=== PATIENT | female | born 1985 | race Caucasian/White ===

== ENCOUNTER 2020-06-11 23:42 | Emergency (ER) | payer BC ==
[~2020-06-11] VITALS: Ht 161 cm; Wt 63.0 kg
[2020-06-12 00:10] VITALS: TEMP 96.6
[2020-06-12 01:17] LABS: BASO % 0.2 % (0.0-2.0); EOS # 0.1 (0.0-0.7); EOS % 0.6 % (0-4.0); GRAN # 9.8 (1.4-6.5); HEMATOCRIT 38.1 % (37.0-47.0); HEMOGLOBIN 12.9 g/dl (12.5-16.0); LYMPH % 16.1 % (20.0-51.0); MEAN CELL VOLUME 91 fl (80.0-100.0); MEAN CORPUSCULAR HEMOGLOBIN 31 pg (27.0-31.0); MEAN CORPUSCULAR HGB CONC 34 g/dl (33.0-37.0); MEAN PLATELET VOLUME 11.6 fl (7.4-10.4); MONO # 0.6 (0.1-0.6); MONO % 4.4 % (1.7-9.3); PLATELET COUNT 185 K/mm3 (130-400); RED BLOOD COUNT 4.18 M/mm3 (4.10-5.30); REDCELL DISTRIBUTION WIDTH-CV 12.5 % (11.5-14.5)
[2020-06-12 01:18] LABS: COLLECTION METHOD CLEAN CATCH
[2020-06-12 01:28] LABS: BILIRUBIN,TOTAL 0.3 mg/dL (0.0-1.0); CALCIUM 9.2 mg/dL (8.4-10.2); CREATININE, serum 0.49 (0.52-1.25); POTASSIUM 3.2 mmol/L (3.4-5.0); TOTAL PROTEIN 7.2 gm/dL (6.4-8.2)
[2020-06-12 01:50] LABS: MUCOUS Present /lpf; PH 6 (5-8); URINE APPEARANCE Hazy; URINE BACTERIA Rare /hpf; URINE BILIRUBIN Negative (NEGATIVE); URINE BLOOD Negative (NEGATIVE); URINE COLOR Yellow; URINE GLUCOSE Negative (NEGATIVE); URINE KETONE Negative (NEGATIVE); URINE LEUKOCYTE ESTERASE 2+ (NEGATIVE); URINE NITRATE Negative (NEGATIVE); URINE PROTEIN(semi-quant) Negative (NEGATIVE); URINE RBC 0-2 /hpf; URINE UROBILINOGEN Negative (NEGATIVE)
[2020-06-12] MEDS ORDERED: PEPCID 20MG TAB20 MG PO (02:06)
[2020-06-12] MEDS ORDERED: CEPHALEXIN500 M1 PO (02:06)
[2020-06-12 02:16] VITALS: BP 132/77; PULSE 66
== END 2020-06-12 02:16 | disposition home or self-care (01) ==
LOC: COL.ER 23:42
PROVIDERS: Emergency Medicine
DX: O99.891 Other specified diseases and conditions complicating pregnancy (principal); O23.41 Unspecified infection of urinary tract in pregnancy, first trimester; R10.13 Epigastric pain; Z3A.12 12 weeks gestation of pregnancy